=== PATIENT | male | born 2000 | race Caucasian/White ===

== ENCOUNTER 2024-01-17 16:30 | Emergency (ER) | payer MEDICAID, SELFPAY ==
--- NOTE | ~2024-01-17 | CT_ITS ---
EXAMINATION: CT HEAD WITHOUT CONTRAST CLINICAL INFORMATION: Fall. COMPARISON: None available. TECHNIQUE: Contiguous axial imaging was performed from the skull base to vertex without intravenous administration of contrast. This CT examination was performed using dose optimization techniques as appropriate, variously including the following: *Automated exposure control. *Adjustment of mA and/or kV according to patient size (this includes techniques or standardized protocols for targeted exams where dose is matched to indication/reason for exam; i.e. extremities or head). *Use of iterative reconstruction technique. DLP: 809 mGy-cm FINDINGS: Changes of prior left hemispheric craniectomy/cranioplasty. Right frontal approach ventriculoperitoneal shunt catheter in place with tip terminating in the anterior aspect of the third ventricle. Prior mir hole within the right parietal bone. Chronic regions of encephalomalacia within the lateral aspect of the left frontotemporal lobes and anterior aspects of the bilateral temporal lobes with associated volume loss. No additional loss of carney-white matter differentiation. No evidence of acute intracranial hemorrhage. A few foci of hypoattenuation in the periventricular and deep white matter are consistent with mild microangiopathy. Proportional prominence of the ventricles and sulcal spaces without evidence of obstructive hydrocephalus. No focal abnormal mass effect or midline shift. No acute soft tissue or osseous abnormalities. Mild mucosal thickening of the paranasal sinuses. The mastoid air cells and middle ear cavities are clear. CT/CT head/brain wo IV con IMPRESSION: 1. No evidence of acute intracranial hemorrhage or edematous territorial infarction. 2. Changes of prior left hemispheric craniectomy/cranioplasty. Chronic regions of encephalomalacia within the lateral aspect of the left frontotemporal lobes and anterior aspects of the bilateral temporal lobes. 3. Right frontal approach ventriculoperitoneal shunt catheter in place with tip terminating in the anterior aspect of the third ventricle. No evidence of obstructive hydrocephalus. Electronically signed by: Wicho Zhang DO 01/17/2024 06:24 PM EDT
--- NOTE | 2024-01-17 16:37 | ED_ITS ---
HPI - General Adult General Chief complaint: Seizure Stated complaint: fall from standing during sz, hx sz Time Seen by Provider: 01/17/24 16:36 Source: patient Mode of arrival: ambulatory Limitations: no limitations History of Present Illness ED Provider: derrek CASTILLO narrative: Patient is 23 years old history of TBI, seizure disorder comes here as patient had a seizure while standing and fell down hitting his head seizure lasted only for a minute or 2 patient is sleepy and tired no tongue bite incontinence patient is on Keppra and Depakote Related Data Previous Rx's ?Medication ?Instructions ?Recorded divalproex 250 mg tablet,delayed 250 mg PO DAILY #30 tabs 01/17/24 release Allergies Allergy/AdvReac Type Severity Reaction Status Date / Time No Known Allergies Allergy Verified 01/17/24 16:46 Review of Systems 2 Review of Systems: Yes all other systems are reviewed and are negative FORMERLY [facility], [facility] Social History Social History Advance Directives: No Advance Directives Information Provided: No Do you have a plan to hurt others: No Plan Physical Exam ED Vital Signs: Vital Signs - 24 hr 01/17/24 16:44 Temperature 97.7 F Pulse Rate 62 Respiratory Rate 12 Blood Pressure 109/48 L Pulse Oximetry 92 BMI result Body Mass Index 39.7 Appearance: Alert. Oriented X3. No acute distress. Eyes: Dilated right pupil (old) ENT: Pharynx normal. Oral Mucosa moist Neck: Normal inspection. Neck supple. CVS: Normal heart rate and rhythm. Pulses normal. Respiratory: No respiratory distress. Equal air entry bilateral, no wheezing/rales/rhonchi Abdomen: Soft and nontender. Bowel sounds are present, no mass palpable, no CVA tenderness Skin: Skin warm and dry. Normal skin color. Normal skin turgor. Extremities: No lower extremity edema. No calf tenderness Neuro: Oriented X 3. No motor deficit. 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 scan of the head and other labs were stable Differential Diagnosis Differential Diagnoses: The differential diagnosis associated with the presentation includes Admission/Observation Consideration of admission/observation: Escalation of care including admission/observation considered Lab Data [facility] Lab Attestation statement: I reviewed the patient's lab results. 01/17/24 18:34 01/17/24 18:34 Labs: Lab Results 01/17/24 Range/Units 18:34 WBC 11.7 H (4.8-10.8) X10*3/uL RBC 4.78 (4.60-5.80) X10*6/uL Hgb 13.0 L (14.0-18.0) g/dl Hct 40.0 L (42.0-52.0) % MCV 83.7 (80.0-98.0) fL MCH 27.2 (27.0-33.0) pg MCHC 32.5 (31.0-36.0) g/dl RDW 14.3 (11.0-16.0) % Plt Count 333 (160-400) X10*3/uL MPV 9.7 (9.4-12.4) fL Immature Gran % (Auto) 0.7 H (0.0-0.4) % Neut % (Auto) 72.7 (45-73) % Lymph % (Auto) 16.0 L (20-40) % [place] % (Auto) 9.0 (2-11) % Eos % (Auto) 0.7 (0-4) % Baso % (Auto) 0.9 (0-2) % Lymph # (Auto) 1.9 (1.2-4.9) X10*3/uL [place] # (Auto) 1.1 (0.1-1.2) X10*3/uL Eos # (Auto) 0.1 (0.0-0.4) X10*3/uL Baso # (Auto) 0.1 (0.0-0.2) X10*3/uL Abs Immat Gran (auto) 0.08 H (0.00-0.03) X10*3/uL Absolute Neuts (auto) 8.5 H (2.0-8.3) x10*3/uL Absolute Nucleated RBC 0.000 (0.0-0.012) X10*3/uL Nucleated RBC % (auto) 0.0 (0.0-0.2) /100WBC Sodium 142 (135-145) mmol/L Potassium 4.3 (3.3-5.1) mmol/L Chloride 108 (96-108) mmol/L Carbon Dioxide 24 (22-29) mmol/L Anion Gap 14 (12-20) BUN 17 H (9-16) mg/dL Creatinine 1.04 (0.5-1.4) mg/dL Estim Creat Clear Calc 146.9 Estimated GFR > 60 Random Glucose 101 (60-115) mg/dL Calcium 9.3 (8.4-10.2) mg/dL Total Bilirubin 0.2 (0.0-1.0) mg/dL AST 27 (5-37) U/L ALT 24 (0-40) U/L Alkaline Phosphatase 61 (39-117) U/L Total Protein 7.3 (6.5-8.0) g/dL Albumin 4.1 (3.5-5.0) g/dL Valproic Acid 45.8 L (50.0-100.0) mcg/mL COVID-19 ([facility]) Negative (Negative) COVID-19 Clin Com See Note Independent Interpretation I performed an independent interpretation of an: CT Scan Radiology Impression Discussion of test interpretation with radiology: I have reviewed the radiologist's reading. Radiologist Impression: CT/CT head/brain wo IV con IMPRESSION: 1. No evidence of acute intracranial hemorrhage or edematous territorial infarction. 2. Changes of prior left hemispheric craniectomy/cranioplasty. Chronic regions of encephalomalacia within the lateral aspect of the left frontotemporal lobes and anterior aspects of the bilateral temporal lobes. 3. Right frontal approach ventriculoperitoneal shunt catheter in place with tip terminating in the anterior aspect of the third ventricle. No evidence of obstructive hydrocephalus. Electronically signed by: Wicho Zhang DO 01/17/2024 06:24 PM EDT RP Discharge Plan Discharge Clinical Impression: Epileptic seizure Patient Disposition: Xfer Other Transfer Details: Care one unit CT scan of the head negative labs are stable dinner current medications patient is given extra dose of Depakote mg in the ER patient's Depakote level was 45.8 (normal level is 50-100) Instructions: Epilepsy (ED) Additional Instructions: Continue Keppra Increase the dose of Depakote to 750 in the morning and 500 in p.m. Follow up with your PCP Prescriptions: New divalproex 250 mg tablet,delayed release (DR/EC) 250 mg PO DAILY Qty: 30 0RF Print Language: Estonian
[2024-01-17 16:44] VITALS: BP 109/48; PULSE 62; RESP 12; TEMP 36.5; O2SAT 92; BMI 39.7
--- NOTE | 2024-01-17 17:08 | PC.NURSE ---
assumed care of patient, patient IV abx and fluids hung by prior RN before blood cultures were done, provider notified, recommended to stop ABX and draw cultures. cultures and lactic obtained and sent, ABX and fluids restarted. patient noted to be incontinent of urine, patient cleaned up new linens and pads, rectal probe placed for temperature monitoring. patient VSS, patient sinus tachycardia rate low 100s, febrile at 101.3. patient is alert and oriented x4.
[2024-01-17 18:41] LABS: MANUAL DIFF FLAG NO
[2024-01-17 18:53] LABS: COVID-19 Test Negative (Negative); IDNOW Serial# 08D9AD1C; Valproate 45.8 mcg/mL (50.0-100.0)
[2024-01-17 18:56] LABS: Alanine Aminotransferase 24 U/L (0-40); Albumin Level 4.1 g/dL (3.5-5.0); Alkaline Phosphatase 61 U/L (39-117); Anion Gap 14 (12-20); Aspartate Amino Transferase 27 U/L (5-37); Bilirubin Total 0.2 mg/dL (0.0-1.0); Blood Urea Nitrogen 17 mg/dL (9-16); Calcium 9.3 mg/dL (8.4-10.2); Carbon Dioxide 24 mmol/L (22-29); Chloride 108 mmol/L (96-108); Creatinine Clr Calc Pharmacy 146.9; Estimated Glomerular Filt Rate > 60; Glucose Random 101 mg/dL (60-115); Potassium 4.3 mmol/L (3.3-5.1); Sodium 142 mmol/L (135-145); Total Protein 7.3 g/dL (6.5-8.0)
[2024-01-17 19:15] LABS: Basophils Absolute Auto 0.1 X10*3/uL (0.0-0.2); Basophils Percent Auto 0.9 % (0-2); Eosinophils Absolute Auto 0.1 X10*3/uL (0.0-0.4); Eosinophils Percent Auto 0.7 % (0-4); Imm Gran Abs Auto 0.08 X10*3/uL (0.00-0.03); Imm Gran Pct Auto 0.7 % (0.0-0.4); Lymphocytes Absolute Auto 1.9 X10*3/uL (1.2-4.9); Mean Corpuscular HGB Conc 32.5 g/dl (31.0-36.0); Mean Corpuscular Hemoglobin 27.2 pg (27.0-33.0); Mean Corpuscular Volume 83.7 fL (80.0-98.0); Mean Platelet Volume 9.7 fL (9.4-12.4); Monocytes Absolute Auto 1.1 X10*3/uL (0.1-1.2); Neutrophils Absolute Auto 8.5 x10*3/uL (2.0-8.3); Neutrophils Percent Auto 72.7 % (45-73); Platelet Count 333 X10*3/uL (160-400); Red Blood Count 4.78 X10*6/uL (4.60-5.80); Red Cell Distribution Width 14.3 % (11.0-16.0); White Blood Count 11.7 X10*3/uL (4.8-10.8)
[2024-01-17] MEDS: Divalproex Sodium 250 MG TABLET.DR 750 MG PO (19:36)
[2024-01-17 20:33] VITALS: BP 122/64; PULSE 72; RESP 18; TEMP 36.2; O2SAT 98
[2024-01-17 20:50] VITALS: BP 122/64; PULSE 72; RESP 18; TEMP 36.2; O2SAT 98
== END 2024-01-17 20:50 | disposition other institution (70) ==
PROVIDERS: Emergency Provider Internal Medicine; PCP Hospitalist
DX: G40.909 Epilepsy, unspecified, not intractable, without status epilepticus (principal); Z87.820 Personal history of traumatic brain injury; Z11.52 Encounter for screening for COVID-19
CPT/HCPCS: 70450; 80053; 80164; 85025; 87635; 99284